=== PATIENT | female | born 1970 | race Caucasian/White ===

== ENCOUNTER 2018-04-11 08:13 | Emergency (ER) | payer SELFPAY ==
--- NOTE | 2018-04-11 08:42 | ER ---
Nurse's Notes [facility] Name: Itzel Daigle Age: 48 yrs Sex: Female : 1970 Arrival Date: 04/11/2018 Time: 08:17 Bed 16 Private MD: None, None Diagnosis: Encounter for screening, unspecified Presentation: 04/11 08:26 Presenting complaint: Patient states: water on my L knee started Tuesday. my work made ch me come get checked out. every 4-5 months this happens. Transition of care: patient was not received from another setting of care. Onset of symptoms was April 07, 2018. Risk Assessment: Do you want to hurt yourself or someone else? Patient reports no desire to harm self or others. Initial Sepsis Screen: Does the patient meet any 2 criteria? No. Patient's initial sepsis screen is negative. Does the patient have a suspected source of infection? No. Patient's initial sepsis screen is negative. Care prior to arrival: None. 08:26 Method Of Arrival: Ambulatory 08:26 Acuity: ALONSO 4 ch Triage Assessment: 08:28 General: Appears in no apparent distress. comfortable, Behavior is calm, cooperative, ch appropriate for age. Pain: Complains of pain in right knee Pain currently is 1 out of 10 on a pain scale. 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 - Social history:: Smoking status: Patient/guardian denies using tobacco, Patient uses alcohol, admits to "couple of beers" a day. Patient/guardian denies using street drugs. - Ebola Screening: : Patient negative for fever greater than or equal to 101.5 degrees Fahrenheit, and additional compatible Ebola Virus Disease symptoms Patient denies exposure to infectious person Patient denies travel to an Ebola-affected area in the 21 days before illness onset No symptoms or risks identified at this time. Screenin:30 Abuse screen: Denies threats or abuse. Nutritional screening: No deficits noted. rb1 Tuberculosis screening: No symptoms or risk factors identified. Fall Risk None identified. Assessment: 08:30 General: Appears in no apparent distress. comfortable, Behavior is calm, cooperative, rb1 Denies fever. Pain: Complains of pain in right knee Pain does not radiate. Pain currently is 1 out of 10 on a pain scale. Neuro: Level of Consciousness is awake, alert, obeys commands, Oriented to person, place, time, situation. Cardiovascular: Capillary refill < 3 seconds is brisk in bilateral fingers. Respiratory: Airway is patent Respiratory effort is even, unlabored, Respiratory pattern is regular, symmetrical. GI: No signs and/or symptoms were reported involving the gastrointestinal system. : No signs and/or symptoms were reported regarding the genitourinary system. Derm: Skin is pink, warm \\T\\ dry. Musculoskeletal: Range of motion: intact in all extremities, Swelling present in right knee. 08:30 Reassessment: Pt. stated, "I can go back to work but they made me come in for a work rb1 release saying that I was ok to work.". Vital Signs: 08:28 BP 124 / 79; Pulse 99; Resp 18; Temp 98.3; Pulse Ox 99% on R/A; Weight 95.25 kg; Height ch 5 ft. 5 in. (165.10 cm); Pain 07/06; 08:28 Body Mass Index 34.95 (95.25 kg, 165.10 cm) ED Course: 08:17 Patient arrived in ED. sb2 08:17 None, None is Private Physician. sb2 08:24 Patric Hawk PA is PHCP. cp 08:24 Vince De León MD is Attending Physician. cp 08:27 Triage completed. ch 08:28 Arm band placed on left wrist. Patient placed in an exam room, on a stretcher. ch 08:30 Patient has correct armband on for positive identification. Placed in gown. Bed in low rb1 position. Call light in reach. Side rails up X 1. Pulse ox on. NIBP on. Warm blanket given. 08:35 Ni Schreiber, RN is Primary Nurse. rb1 08:48 No provider procedures requiring assistance completed. Patient did not have IV access rb1 during this emergency room visit. Administered Medications: No medications were administered Outcome: 08:42 Discharge ordered by . cp 08:46 Patient left the ED. rb1 08:46 Discharged to home ambulatory. rb1 08:46 Condition: stable 08:46 Discharge instructions given to patient, Instructed on discharge instructions, follow up and referral plans. Demonstrated understanding of instructions, follow-up care, Prescriptions given X none Signatures: Abbie Garcia, RN RN Patric Hawk PA PA cp Barber, Rebecca, RN RN rb1 Raven Membreno sb2
--- NOTE | 2018-04-11 08:43 | EDPHYS ---
Physician Documentation [facility] Name: Itzel Daigle Age: 48 yrs Sex: Female : 1970 Arrival Date: 04/11/2018 Time: 08:17 Bed 16 Private MD: None, None ED Physician Vince De León HPI: 04/11 08:34 This 48 yrs old Female presents to ER via Ambulatory with complaints of note cp to return to work. 08:35 Missed work yesterday due to pain in right knee. Denies injury. Reports feels okay to cp return to work today. 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 - Social history:: Smoking status: Patient/guardian denies using tobacco, Patient uses alcohol, admits to "couple of beers" a day. Patient/guardian denies using street drugs. - Ebola Screening: : Patient negative for fever greater than or equal to 101.5 degrees Fahrenheit, and additional compatible Ebola Virus Disease symptoms Patient denies exposure to infectious person Patient denies travel to an Ebola-affected area in the 21 days before illness onset No symptoms or risks identified at this time. ROS: 08:36 Constitutional: Negative for body aches, chills, fever, poor PO intake. cp 08:36 Cardiovascular: Negative for chest pain, edema. 08:36 Respiratory: Negative for cough, shortness of breath, wheezing. 08:36 Abdomen/GI: Negative for abdominal pain, nausea, vomiting, and diarrhea. 08:36 MS/extremity: Negative for decreased range of motion, paresthesias, tenderness, warmth. 08:36 All other systems are negative. Exam: 08:38 Head/Face: Normocephalic, atraumatic. cp 08:38 Constitutional: The patient appears in no acute distress, alert, awake, non-toxic, well developed, well nourished. 08:38 Eyes: Periorbital structures: appear normal, Conjunctiva: normal, no exudate, no injection, Lids and lashes: appear normal, bilaterally. 08:38 ENT: External ear(s): are unremarkable, Nose: is normal, Mouth: is normal. 08:38 Chest/axilla: Inspection: normal. 08:38 Cardiovascular: Rate: normal. 08:38 Respiratory: the patient does not display signs of respiratory distress, Respirations: normal, no use of accessory muscles, no splinting, no tachypnea, labored breathing, is not present. 08:38 Abdomen/GI: Exam negative for discomfort, distension, guarding, Inspection: abdomen appears normal. 08:38 Back: pain, is absent, ROM is normal. 08:38 Musculoskeletal/extremity: Joints: no swelling, no restriction AROM, no tenderness noted on exam. 08:38 Skin: cellulitis, is not appreciated, no rash present. Vital Signs: 08:28 BP 124 / 79; Pulse 99; Resp 18; Temp 98.3; Pulse Ox 99% on R/A; Weight 95.25 kg; Height ch 5 ft. 5 in. (165.10 cm); Pain 1/10; 08:28 Body Mass Index 34.95 (95.25 kg, 165.10 cm) ch MDM: 08:30 Patient medically screened. cp 08:35 Differential Diagnosis strain, richardson's cyst, meniscus tear, ligament injury. cp 08:40 Data reviewed: vital signs, nurses notes, and as a result, I will discharge patient. cp 08:42 Counseling: I had a detailed discussion with the patient and/or guardian regarding: the cp historical points, exam findings, and any diagnostic results supporting the discharge/admit diagnosis, to return to the emergency department if symptoms worsen or persist or if there are any questions or concerns that arise at home. Administered Medications: No medications were administered Disposition: 09:00 Chart complete. cp 10:53 Co-signature as Attending Physician, Vince De León MD. rn Disposition: 04/11/18 08:42 Discharged to Home. Impression: Encounter for screening, unspecified. - Condition is Stable. - Discharge Instructions: Form - Return To Work. - Medication Reconciliation Form, Thank You Letter, Antibiotic Education, Prescription Opioid Use, Work release form form. - Follow up: Private Physician; When: As needed; Reason: Worsening of condition. - Problem is new. - Symptoms are resolved. Signatures: Abbie Garcia RN RN Vince De León MD MD rn Page, Corey, PA PA cp Ni Schreiber, RN RN rb1 Corrections: (The following items were deleted from the chart) 08:46 08:42 04/11/2018 08:42 Discharged to Home. Impression: Encounter for screening, rb1 unspecified. Condition is Stable. Forms are Work release form, Medication Reconciliation Form, Thank You Letter, Antibiotic Education, Prescription Opioid Use. Follow up: Private Physician; When: As needed; Reason: Worsening of condition. Problem is new. Symptoms are resolved. cp
== END 2018-04-11 08:46 | disposition home or self-care (01) ==
LOC: ER 08:13
DX: Z13.9 Encounter for screening, unspecified (principal); I10 Essential (primary) hypertension
CPT/HCPCS: 99283

== ENCOUNTER 2018-10-23 07:14 | Emergency (ER) | payer SELFPAY ==
[2018-10-23] MEDS ORDERED: NA CHLORIDE 0.9% 500 ML ONE (07:58)
[2018-10-23 08:00] LABS: Absolute Lymphocytes (CBC) 1.4 K/uL (0.7-4.9); Absolute Monocytes 0.5 K/uL (0.1-1.3); Absolute Neutrophil 6.8 K/uL (1.8-8.0); Basophils % 0.5 % (0-1.3); Hematocrit 41.3 % (36.0-45.0); MPV 7.7 fL (7.6-11.3); Monocytes % 5.4 % (3.3-12.3); RBC Red Blood Cell Count 4.65 M/uL (3.86-4.86)
[2018-10-23 08:19] LABS: BUN Blood Urea Nitrogen 9 mg/dL (7-18); Bicarbonate 25 mmol/L (21-32); Glucose Level 117 mg/dL (74-106); Sodium Level 137 mmol/L (136-145); Troponin (Emerg Dept Use Only) < 0.02 ng/mL (0.0-0.045)
--- NOTE | 2018-10-23 08:28 | RAD REPORT ---
EXAM DESCRIPTION: RAD - Chest Single View - 10/23/2018 8:14 am CLINICAL HISTORY: PALPITATIONS Chest pain. COMPARISON: Chest Pa And Lat (2 Views) dated 05/09/2017; CHEST SINGLE VIEW dated 02/09/2013; CHEST SI NGLE VIEW dated 01/17/2013; CHEST PA AND LAT 2 VIEW dated 12/29/2001 FINDINGS: Portable technique limits examination quality. The lungs are grossly clear. The heart is normal in size. No displaced fractures. IMPRESSION: No acute intrathoracic process suspected.
--- NOTE | 2018-10-23 08:53 | RAD REPORT ---
EXAM DESCRIPTION: CT - Head Brain Wo Cont - 10/23/2018 8:46 am CLINICAL HISTORY: HEADACHE Headache, hypertension COMPARISON: HEAD BRAIN W O CONTRAST dated 01/17/2013; HEAD BRAIN W O CONTRAST dated 12/29/2001; Soft Ti ssue Neck W/Contr dated 10/23/2018 TECHNIQUE: All CT scans are performed using dose optimization technique as appropriate and may inclu de automated exposure control or mA/KV adjustment according to patient size. FINDINGS: No intracranial hemorrhage, hydrocephalus or extra-axial fluid collection.No areas of brai n edema or evidence of midline shift. The paranasal sinuses and mastoids are clear. The calvarium is intact. IMPRESSION: No acute intracranial abnormality.
--- NOTE | 2018-10-23 08:58 | RAD REPORT ---
EXAM DESCRIPTION: CT - Soft Tissue Neck W/Contr CLINICAL HISTORY: difficulty swallowing solids Neck pain COMPARISON: Head Brain Wo Cont dated 10/23/[address] scans are performed using dose optimization technique as appropriate and may includ e automated exposure control or mA/KV adjustment according to patient size. FINDINGS: Nasopharynx is within normal limits. Fossa of Rosenmuller well aerated bilaterally. Skullb ase is intact. No intrinsic laryngeal or pharyngeal mass. Salivary glands are symmetric. The thyroid gland is normal in size. Small left-sided tonsillith is present at the level the palatine tonsils. No bulky neck adenopathy is seen. IMPRESSION: An acute neck abnormality is not detected. Direct visualization would be advised if clin ical symptoms persist.
--- NOTE | 2018-10-23 09:04 | EDPHYS ---
Physician Documentation [facility] Name: Itzel To Age: 48 yrs Sex: Female : 1970 Arrival Date: 10/23/2018 Time: 07:17 Bed 13 Private MD: ED Physician Vince De León HPI: 10/23 08:35 This 48 yrs old Female presents to ER via Ambulatory with complaints of rn Headache, High Blood Pressure. 08:35 The patient complains of pain to the occipital area. The patient describes the headache rn as aching. Onset: The symptoms/episode began/occurred last night. Associated signs and symptoms: Pertinent negatives: altered mental status, fever, neck stiffness, rash, vision changes, vision loss, vomiting, vertigo. Severity of symptoms: At its worst the pain was moderate, in the emergency department the pain has improved. Headache History: The patient has had previous headaches and this one is similar to previous episodes. The symptoms are alleviated by nothing. The patient has experienced similar episodes in the past. Reports out of her lisinopril for weeks, last night felt headache, high blood pressure, nausea, became anxious, reports palpitations but no chest pain. Feels better now and BP improved. NO head injury. NO focal neurological complaint. Also reports months of progressive dysphagia to solids, can take liquids. . Historical: - Allergies: 07:31 No Known Allergies; ss - Home Meds: 07:31 Lisinopril 10 mg PO once DAILY (has been out for three months) [Active]; ss - PMHx: 07:30 "fluid on knee"; Hypertension; ph 07:31 Hypertension; High Cholesterol; ss - PSHx: 07:30 Tubal ligation; ph 07:31 Tubal ligation; ss - Immunization history:: Adult Immunizations unknown, Adult Immunizations up to date. - Social history:: Patient uses alcohol, only on a social basis. Patient/guardian denies using street drugs, Smoking status: Patient uses tobacco products, smokes one-half pack cigarettes per day. - Ebola Screening: : No symptoms or risks identified at this time Patient denies exposure to infectious person Patient denies travel to an Ebola-affected area in the 21 days before illness onset. - Family history:: not pertinent. - Hospitalizations: : No recent hospitalization is reported. ROS: 08:35 Constitutional: Negative for fever, chills, and weight loss, Eyes: Negative for injury, rn pain, redness, and discharge, Neck: Negative for injury, pain, and swelling, Cardiovascular: Negative for chest pain, and edema, Respiratory: Negative for cough, wheezing, and pleuritic chest pain, Abdomen/GI: Negative for abdominal pain, vomiting, diarrhea, and constipation, MS/Extremity: Negative for injury and deformity, Skin: Negative for injury, rash, and discoloration, Neuro: Negative for numbness, tingling, and seizure. Exam: 08:35 Constitutional: This is a well developed, well nourished patient who is awake, alert, rn appears anxious and tearful Head/Face: Normocephalic, atraumatic. Eyes: Pupils equal round and reactive to light, extra-ocular motions intact. Lids and lashes normal. Conjunctiva and sclera are non-icteric and not injected. Cornea within normal limits. Periorbital areas with no swelling, redness, or edema. ENT: MMM Neck: Trachea midline, no thyromegaly or masses palpated, and no cervical lymphadenopathy. Supple, full range of motion without nuchal rigidity, or vertebral point tenderness. No Meningismus. Cardiovascular: Regular rate and rhythm . No pulse deficits. Respiratory: Lungs have equal breath sounds bilaterally, clear to auscultation. No increased work of breathing, no retractions or nasal flaring. Skin: Warm, dry with normal turgor. Normal color with no rashes, no lesions, and no evidence of cellulitis. MS/ Extremity: Pulses equal, no cyanosis. Neurovascular intact. Full, normal range of motion. Equal circumference. Neuro: Awake and alert, GCS 15, oriented to person, place, time, and situation. Cranial nerves II-XII grossly intact. Motor strength 5/5 in all extremities. Sensory grossly intact. Cerebellar exam normal. Normal gait. Vital Signs: 07:28 BP 145 / 87; Pulse 106; Resp 18; Pulse Ox 99% on R/A; ph 07:31 Weight 85.73 kg; Height 5 ft. 5 in. (165.10 cm); Pain 7/10; ss 08:36 BP 123 / 77; Pulse 102; Resp 18; Pulse Ox 99% ; ph 09:40 BP 132 / 80; Pulse 94; Resp 18; Temp 97.9; Pulse Ox 100% on R/A; ph 07:31 Body Mass Index 31.45 (85.73 kg, 165.10 cm) ss Cranston Coma Score: 09:01 Eye Response: spontaneous(4). Verbal Response: oriented(5). Motor Response: obeys rn commands(6). Total: 15. MDM: 07:26 Patient medically screened. rn 09:01 Differential diagnosis: hypertensive headache, tension headache, vasomotor headache. rn Data reviewed: vital signs, nurses notes, lab test result(s), radiologic studies, CT scan, and as a result, I will discharge patient. Counseling: I had a detailed discussion with the patient and/or guardian regarding: the historical points, exam findings, and any diagnostic results supporting the discharge/admit diagnosis, lab results, radiology results, the need for outpatient follow up, to return to the emergency department if symptoms worsen or persist or if there are any questions or concerns that arise at home. Response to treatment: the patient's symptoms have mildly improved after treatment. Special discussion: I discussed with the patient/guardian in detail that at this point there is no indication for admission to the hospital. It is understood, however, that if the symptoms persist or worsen the patient needs to return immediately for re-evaluation. ED course: Will refer to GI for swallowing issues, recommend daily antacid for now until scoped. . 10/23 07:36 Order name: CBC with Diff; Complete Time: 08:57 rn 10/23 07:36 Order name: Basic Metabolic Panel; Complete Time: 08:57 rn 10/23 07:36 Order name: Troponin (emerg Dept Use Only); Complete Time: 08:57 rn 10/23 07:36 Order name: CT Head Brain wo Cont; Complete Time: 08:57 10/23 07:36 Order name: CT Soft Tissue Neck W/contr; Complete Time: 09:00 rn 10/23 07:36 Order name: XRAY Chest (1 view); Complete Time: 08:57 rn 10/23 07:36 Order name: IV Start; Complete Time: 07:53 rn 10/23 07:36 Order name: EKG; Complete Time: 07:37 rn 10/23 07:36 Order name: EKG - Nurse/Tech; Complete Time: 07:57 rn Administered Medications: 07:57 Drug: NS 0.9% 500 ml Route: IV; Rate: bolus; Site: right antecubital; ph 08:30 Follow up: Response: No adverse reaction; IV Status: Completed infusion ph Disposition: 10/23/18 09:03 Discharged to Home. Impression: Headache, Hypertension, Dysphagia. - Condition is Stable. - Discharge Instructions: Dysphagia, Hypertension. - Medication Reconciliation Form, Thank You Letter, Antibiotic Education, Prescription Opioid Use, Work release form form. - Follow up: Private Physician; When: As needed; Reason: Recheck today's complaints, Re-evaluation by your physician. - Problem is new. - Symptoms have improved. Signatures: Dispatcher [employer] EDMS Vince De León MD MD rn Smirch, Shelby, RN RN Radha Patel RN RN ph Corrections: (The following items were deleted from the chart) 09:41 09:03 10/23/2018 09:03 Discharged to Home. Impression: Headache; Hypertension; ph Dysphagia. Condition is Stable. Forms are Medication Reconciliation Form, Thank You Letter, Antibiotic Education, Prescription Opioid Use. Follow up: Private Physician; When: As needed; Reason: Recheck today's complaints, Re-evaluation by your physician. Problem is new. Symptoms have improved. rn
--- NOTE | 2018-10-23 09:04 | ER ---
Nurse's Notes [facility] Name: Itzel To Age: 48 yrs Sex: Female : 1970 Arrival Date: 10/23/2018 Time: 07:17 Bed 13 Private MD: Diagnosis: Headache;Hypertension;Dysphagia Presentation: 10/23 07:28 Presenting complaint: Patient states: "I feel like my blood pressure is high. I ss couldn't sleep last night, my head is throbbing and I feel shaky." Pt reports she is supposed to take Lisinopril 10 mg DAILY and medication for high cholesterol, but has been out for three months. Transition of care: patient was not received from another setting of care. Onset of symptoms was October 22, 2018. Risk Assessment: Do you want to hurt yourself or someone else? Patient reports no desire to harm self or others. Initial Sepsis Screen: Does the patient meet any 2 criteria? No. Patient's initial sepsis screen is negative. Does the patient have a suspected source of infection? No. Patient's initial sepsis screen is negative. Care prior to arrival: None. 07:28 Method Of Arrival: Ambulatory ss 07:28 Acuity: ALONSO 3 ss Historical: - Allergies: 07:31 No Known Allergies; ss - Home Meds: 07:31 Lisinopril 10 mg PO once DAILY (has been out for three months) [Active]; ss - PMHx: 07:30 "fluid on knee"; Hypertension; ph 07:31 Hypertension; High Cholesterol; ss - PSHx: 07:30 Tubal ligation; ph 07:31 Tubal ligation; ss - Immunization history:: Adult Immunizations unknown, Adult Immunizations up to date. - Social history:: Patient uses alcohol, only on a social basis. Patient/guardian denies using street drugs, Smoking status: Patient uses tobacco products, smokes one-half pack cigarettes per day. - Ebola Screening: : No symptoms or risks identified at this time Patient denies exposure to infectious person Patient denies travel to an Ebola-affected area in the 21 days before illness onset. - Family history:: not pertinent. - Hospitalizations: : No recent hospitalization is reported. Screenin:29 Abuse screen: Denies threats or abuse. Denies injuries from another. Nutritional ph screening: No deficits noted. Tuberculosis screening: No symptoms or risk factors identified. Fall Risk None identified. Assessment: 08:00 General: Appears in no apparent distress. comfortable, well groomed, Behavior is calm, ph cooperative, appropriate for age, Denies fever, feeling ill. Pain: Complains of pain in occipital area and base of the skull. 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 Full function Gait is steady, Speech is normal, Facial symmetry appears normal, Facial symmetry: tongue is midline, Pupils are PERRLA, Reports headache occipital area. Cardiovascular: Reports lightheadedness, palpitations, shortness of breath, Denies chest pain, diaphoresis, nausea, vomiting, Capillary refill < 3 seconds in bilateral fingers Patient's skin is warm and dry. Respiratory: Airway is patent Respiratory effort is even, unlabored, Respiratory pattern is regular, symmetrical. GI: No signs and/or symptoms were reported involving the gastrointestinal system. Patient currently denies abdominal pain, nausea, vomiting. EENT: Reports difficulty swallowing. Derm: Skin is intact, is healthy with good turgor, Skin is pink, warm \\T\\ dry. Musculoskeletal: Circulation, motion, and sensation intact. Range of motion: intact in all extremities. 08:35 Reassessment: Patient appears in no apparent distress at this time. Patient and/or ph family updated on plan of care and expected duration. Pain level reassessed. Patient is alert, oriented x 3, equal unlabored respirations, skin warm/dry/pink. Pt taken to CT via wheelchair. 09:41 Reassessment: Patient appears in no apparent distress at this time. Patient and/or ph family updated on plan of care and expected duration. Pain level reassessed. Patient is alert, oriented x 3, equal unlabored respirations, skin warm/dry/pink. Pt d/c home. Vital Signs: 07:28 BP 145 / 87; Pulse 106; Resp 18; Pulse Ox 99% on R/A; ph 07:31 Weight 85.73 kg; Height 5 ft. 5 in. (165.10 cm); Pain 7/10; ss 08:36 BP 123 / 77; Pulse 102; Resp 18; Pulse Ox 99% ; ph 09:40 BP 132 / 80; Pulse 94; Resp 18; Temp 97.9; Pulse Ox 100% on R/A; ph 07:31 Body Mass Index 31.45 (85.73 kg, 165.10 cm) Jackson Coma Score: 09:01 Eye Response: spontaneous(4). Verbal Response: oriented(5). Motor Response: obeys rn commands(6). Total: 15. ED Course: 07:17 Patient arrived in ED. as 07:24 Radha Singleton RN is Primary Nurse. ph 07:26 Vince De León MD is Attending Physician. rn 07:29 Arm band placed on. ph 07:29 Patient has correct armband on for positive identification. Bed in low position. Call ph light in reach. Side rails up X 1. Pulse ox on. NIBP on. 07:30 Triage completed. 07:42 Radiology exam delayed due to lab results not completed at this time. (BUN/Creatinine). mw3 07:53 Initial lab(s) drawn, by ia, sent to lab. Inserted saline lock: 20 gauge in right em1 antecubital area, using aseptic technique. Blood collected. 08:15 XRAY Chest (1 view) In Process Unspecified. EDMS 08:46 CT Head Brain wo Cont In Process Unspecified. EDMS 08:46 CT Soft Tissue Neck W/contr In Process Unspecified. EDMS 09:40 No provider procedures requiring assistance completed. IV discontinued, intact, ph bleeding controlled, No redness/swelling at site. Pressure dressing applied. Administered Medications: 07:57 Drug: NS 0.9% 500 ml Route: IV; Rate: bolus; Site: right antecubital; ph 08:30 Follow up: Response: No adverse reaction; IV Status: Completed infusion ph Outcome: 09:03 Discharge ordered by . rn 09:40 Discharged to home ambulatory. ph 09:40 Condition: good 09:40 Discharge instructions given to patient, Instructed on discharge instructions, follow up and referral plans. Demonstrated understanding of instructions, follow-up care. 09:41 Patient left the ED. ph Signatures: Dispatcher [employer] Elva Taylor Roman, MD MD rn Martinez, Eric em1 Kristin Estrella RN RN Radha Singleton RN RN Latanya De Guzman [email or web address]
== END 2018-10-23 09:41 | disposition home or self-care (01) ==
LOC: ER 07:14
DX: I10 Essential (primary) hypertension (principal); R13.10 Dysphagia, unspecified; F17.210 Nicotine dependence, cigarettes, uncomplicated; E78.00 Pure hypercholesterolemia, unspecified
CPT/HCPCS: 36415; 70450; 70491; 71045; 80048; 84484; 85025; Q9967

== ENCOUNTER 2019-12-27 10:21 | Emergency (ER) | payer SELFPAY ==
[2019-12-27 12:43] LABS: Urine Blood NEGATIVE (NEG); Urine Glucose NEGATIVE (NEG); Urine Protein NEGATIVE (NEG); Urine Specific Gravity 1.025 (1.005-1.030); Urine pH 7.5 (5.0-7.0)
[2019-12-27 12:49] LABS: Urine Bacteria <20 /HPF (<20); Urine Culture Reflex Order NOT NEEDED; Urine RBC <5 /HPF (NONE SEEN)
--- NOTE | 2019-12-27 13:56 | EDPHYS ---
Physician Documentation [facility] Name: Itzel To Age: 49 yrs Sex: Female : 1970 Arrival Date: 12/27/2019 Time: 10:22 Bed 19 Private MD: ED Physician Nayan Mccoy HPI: 12/26 12:51 This 49 yrs old Female presents to ER via Ambulatory with complaints of jmm Possible STI. 12:51 The patient presents with a possible exposure to a sexually transmitted disease. Onset: jmm The symptoms/episode began/occurred gradually. Modifying factors: The symptoms are alleviated by nothing, the symptoms are aggravated by nothing. This is a 49 year old female with a history of htn, hlp that presents to the ED with complaints of vaginal swelling beginning after a recent unprotected intercourse. Denies abdnormal discharge. Partner just notified her that he had a STD. . 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 - Social history:: Smoking status: Patient denies any tobacco usage or history of. Patient uses alcohol, on a daily basis. claims drinking about a 6 pack/day. ROS: 12:51 Constitutional: Negative for fever, chills, and weight loss, Cardiovascular: Negative jmm for chest pain, palpitations, and edema, Respiratory: Negative for shortness of breath, cough, wheezing, and pleuritic chest pain. 12:51 : Positive for urinary symptoms. 12:51 All other systems are negative. Exam: 12:51 Constitutional: This is a well developed, well nourished patient who is awake, alert, jmm and in no acute distress. Head/Face: atraumatic. Eyes: EOMI, no conjunctival erythema appreciated ENT: Moist Mucus Membranes Neck: Trachea midline, Supple Chest/axilla: Normal chest wall appearance and motion. Cardiovascular: Regular rate and rhythm. No edema appreciated Respiratory: Normal respirations, no respiratory distress appreciated Abdomen/GI: Non distended, soft Back: Normal ROM Skin: General appearance color normal MS/ Extremity: Moves all extremities, no obvious deformities appreciated, no edema noted to the lower extremities Neuro: Awake and alert, normal gait Psych: Behavior is normal, Mood is normal, Patient is cooperative and pleasant 13:53 : Pelvic Exam: External exam: erythema is noted, Speculum exam: normal findings, os [facility] that is closed. Vital Signs: 10:43 BP 152 / 99; Pulse 70; Resp 17; Temp 98.2; Pulse Ox 100% ; Pain 5/10; jl7 12:20 BP 138 / 92; Pulse 82; Resp 15 S; Pulse Ox 99% on R/A; ca1 13:41 BP 128 / 85; Pulse 86; Resp 15 S; Pulse Ox 100% on R/A; ca1 MDM: 12:43 Patient medically screened. [facility] 13:45 Data reviewed: vital signs, nurses notes. Counseling: I had a detailed discussion with [facility] the patient and/or guardian regarding: the historical points, exam findings, and any diagnostic results supporting the discharge/admit diagnosis, the need for outpatient follow up, to return to the emergency department if symptoms worsen or persist or if there are any questions or concerns that arise at home. 12/26 11:34 Order name: Urine Microscopic Only; Complete Time: 12:54 [facility] 12/26 11:46 Order name: Urine Dipstick--Ancillary (enter results); Complete Time: 12:47 [place] 12/26 11:46 Order name: Urine --Ancillary (enter results); Complete Time: 12:47 [place] 12/26 12:49 Order name: GC (GONORR/CHLAMYDIA) Probe [facility] 12/26 12:49 Order name: Wet Prep [facility] 12/26 12:54 Order name: Pelvic Exam Setup; Complete Time: 13:03 [facility] Administered Medications: No medications were administered Disposition: 15:56 Co-signature as Attending Physician, Nayan Mccoy MD I agree with the assessment and kdr plan of care. Disposition: 12/27/19 13:56 Discharged to Home. Impression: Labial Cellulitis, Possible STI. - Condition is Stable. - Discharge Instructions: Cellulitis, Adult. - Prescriptions for Bactrim DS 800- 160 mg Oral Tablet - take 1 tablet by ORAL route every 12 hours for 10 days; 20 tablet. Doxycycline Monohydrate 100 mg Oral Tablet - take 1 tablet by ORAL route every 12 hours for 10 days; 20 tablet. - Medication Reconciliation Form, Thank You Letter, Antibiotic Education, Prescription Opioid Use form. - Follow up: Private Physician; When: 2 - 3 days; Reason: Recheck today's complaints, Continuance of care, Re-evaluation by your physician. Signatures: Dispatcher [employer] EDMS Nayan Mccoy MD MD kdr Mickail, Joel, PA PA jmm Leal, Jahala, RN RN jl7 Silvana Saldana RN RN ca1 Corrections: (The following items were deleted from the chart) 14:15 13:56 12/27/2019 13:56 Discharged to Home. Impression: Labial Cellulitis; Possible STI. ca1 Condition is Stable. Forms are Medication Reconciliation Form, Thank You Letter, Antibiotic Education, Prescription Opioid Use. Follow up: Private Physician; When: 2 - 3 days; Reason: Recheck today's complaints, Continuance of care, Re-evaluation by your physician. ignacio
--- NOTE | 2019-12-27 13:56 | ER ---
Nurse's Notes [facility] Name: Itzel To Age: 49 yrs Sex: Female : 1970 Arrival Date: 12/27/2019 Time: 10:22 Bed 19 Private MD: Diagnosis: Labial Cellulitis;Possible STI Presentation: 12/26 10:43 Chief complaint: Patient states: Had sex with estranged about a week ago, jl7 reports vaginal swelling and lumps to vaginal area x 5 days. "He just reported having an STD. Won't tell me what it is.". Coronavirus screen: Proceed with normal triage. Patient denies a cough. Patient denies shortness of breath or difficulty breathing. Patient denies measured and/or subjective temperature greater than 100.4F prior to today's visit. Patient denies travel on a cruise ship or to a country the [facility] currently lists as an affected area. Patient denies contact with known and/or suspected case of COVID-19. Ebola Screen: No symptoms or risks identified at this time. Initial Sepsis Screen: Does the patient meet any 2 criteria? No. Patient's initial sepsis screen is negative. Does the patient have a suspected source of infection? No. Patient's initial sepsis screen is negative. Risk Assessment: Do you want to hurt yourself or someone else? Patient reports no desire to harm self or others. Onset of symptoms was December 22, 2019. Care prior to arrival: None. 10:43 Method Of Arrival: Ambulatory jl7 10:43 Acuity: ALONSO 4 jl7 Triage Assessment: 10:47 General: Appears in no apparent distress. uncomfortable, Behavior is calm, cooperative, jl7 appropriate for age. Pain: Pain currently is 5 out of 10 on a pain scale. 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 - Social history:: Smoking status: Patient denies any tobacco usage or history of. Patient uses alcohol, on a daily basis. claims drinking about a 6 pack/day. Screenin:17 Abuse screen: Denies threats or abuse. Denies injuries from another. Nutritional ca1 screening: No deficits noted. Tuberculosis screening: No symptoms or risk factors identified. Fall Risk None identified. Assessment: 12:17 General: Appears in no apparent distress. comfortable, Behavior is calm, cooperative, ca1 appropriate for age. Pain: Complains of pain in groin Pain currently is 6 out of 10 on a pain scale. Pain began 5 days ago. Neuro: Level of Consciousness is awake, alert, obeys commands, Oriented to person, place, time, situation, Appropriate for age. Cardiovascular: Heart tones S1 S2 present Capillary refill < 3 seconds Patient's skin is warm and dry. Respiratory: Airway is patent Respiratory effort is even, unlabored, Respiratory pattern is regular, symmetrical. GI: Abdomen is flat, non-distended, Bowel sounds present X 4 quads. Abd is soft and non tender X 4 quads. : Reports pain vaginal area. Reports 2 lumps on each labia since 4-5 days ago. EENT: No signs and/or symptoms were reported regarding the EENT system. Derm: Skin is intact, is healthy with good turgor, Skin is pink, warm \\T\\ dry. Musculoskeletal: Circulation, motion, and sensation intact. Capillary refill < 3 seconds. 13:41 Reassessment: Patient appears in no apparent distress at this time. Patient and/or ca1 family updated on plan of care and expected duration. Pain level reassessed. Patient is alert, oriented x 3, equal unlabored respirations, skin warm/dry/pink. Vital Signs: 10:43 BP 152 / 99; Pulse 70; Resp 17; Temp 98.2; Pulse Ox 100% ; Pain 5/10; jl7 12:20 BP 138 / 92; Pulse 82; Resp 15 S; Pulse Ox 99% on R/A; ca1 13:41 BP 128 / 85; Pulse 86; Resp 15 S; Pulse Ox 100% on R/A; ca1 ED Course: 10:22 Patient arrived in ED. ag5 10:46 Triage completed. jl7 10:47 Arm band placed on right wrist. jl7 11:34 Maral Guillen RN is Primary Nurse. jl7 11:41 Urine collected: clean catch specimen, clear. jl7 12:05 Gaston Huertas PA is PHCP. [facility] 12:05 Nayan Mccoy MD is Attending Physician. [facility] 12:07 Primary Nurse role handed off by Maral Guillen RN ca1 12:07 Silvana Saldana, RN is Primary Nurse. ca1 12:17 Patient has correct armband on for positive identification. Placed in gown. Bed in low ca1 position. Call light in reach. Side rails up X 1. Pulse ox on. NIBP on. Warm blanket given. 13:42 Assist provider with pelvic exam: Set up pelvic tray. Performed by Gaston VEGA ca1 Specimens sent to lab. Patient tolerated well. 14:15 Patient did not have IV access during this emergency room visit. ca1 Administered Medications: No medications were administered Outcome: 13:56 Discharge ordered by . [facility] 14:15 Discharged to home ambulatory. ca1 14:15 Condition: stable 14:15 Discharge instructions given to patient, Instructed on discharge instructions, follow up and referral plans. medication usage, safe sex practices, Demonstrated understanding of instructions, follow-up care, medications, Prescriptions given X 2. 14:15 Patient left the ED. [facility] Signatures: Gaston Huertas PA PA [facility] Maral Guillen, RN RN jl7 Silvana Saldana, RN RN ca1 Ana Laura Farrell ag5
[2019-12-27 14:24] VITALS: TEMP 98.2
[2019-12-27 14:27] VITALS: BP 128/85; O2SAT 100
[2019-12-31 19:40] LABS: C.trachomatis RNA,TMA Not Detected (Not Detected)
== END 2019-12-27 14:15 | disposition home or self-care (01) ==
LOC: ER 10:21
DX: N76.2 Acute vulvitis (principal); F10.10 Alcohol abuse, uncomplicated; Z20.2 Contact with and (suspected) exposure to infections with a predominantly sexual mode of transmission
CPT/HCPCS: 81003; 81015; 81025; 87210; 87490; 87590; 99284

== ENCOUNTER 2024-06-28 12:22 | Emergency (ER) | payer OTHER, SELFPAY ==
--- OUTSIDE RECORDS SUMMARY | 2024-06-28 12:26 | XMS REPORT | Continuity of Care Document ---
Author Name Unknown Address [address] [place] [address] [facility] thconnect Address [address] [place] [address] Care Team Providers Care Telemarketing Sales Representative Name Role Phone PCP, PATIENT DOES NOT HAVE A Primary Care Physic nilson Unavailable JOSE RAMON BYRNE Attending Clinician UnavailCAIO Jhaveri Attending Clinician Unavailable URBAN GRANADOS Attending Clinician Unavailable KATIANA PIEDRA Attending Clinician Unavailab BERYL Gonzalez Attending Clinician Unavailable LAB90 Attending Clinician Unavailable BROCK TRIPP Attending Clinician Unavailable MD NATHALIA Attending Clinician Unavailab MARIAM Wright Attending Clinician UnavailWHITNEY Moreno Attending Clinician Unavailable ANGE DOUGHERTY Attending Clinician Unava ilGISELA Selby Attending Clinician Unavailable BISI ALLEN Attending Clinician Unavailable BROOKE FRANK Attending Clinician Unava ilable ROCKY PEARL Attending Clinician Unavailable ANNAMARIE DOSS Attending Clinician Unava ilable ANGÉLICA HERRERA Attending Clinician Unavaila ble Angélica Gordillo Attending Clinician [phone] Molina BRAUN, Bree Bnenett Attending Clinician + [phone] RUBY MEDINA Attending Clinician Unavailphilip Cobian DO Chuckie Attending Clinician [phone] Ruby Rice Attending Clinician [phone] Doctor Unassigned, [place] Attending Clinician U JOSE ALFREDO Dalton Attending Clinician Unavailable ANGÉLICA HERRERA Admitting Clinician Unavaila JOSE ALFREDO Peace Admitting Clinician Unavailable Payers Payer Name Policy Type Policy Number Effective Date Expirati on Date Source AETNA MP [employer] [employer] 5 H[employer] LEAD [employer]IVER 94 ON 9 [id number] 2023 00:00:00 [employer] 2 [id number] 2023 00:00:00 [employer] 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 [id number] 2023 00:00:00 Problems Condition Name Condition Details Condition Category Status Onset Date Resolution Date Last Treatment Date Treating Clinician Comments Source Mild episode of recurrent major depressive disorder Mild episode of recurrent major depressive disorder Disease Active 2023-06 0- 00:00: 00 Shanta Monteiro - Keilaa sonal Chronic low back pain without sciatica Chronic low back pain without sciatica Disease Active - 00:00: 00 Shanta Monteiro - Externa l Chronic neck pain Chronic neck pain Disease Active - 00:00: 00 Shanta Monteiro - Keilaa sonal Pelvic mass Pelvic mass Disease Active - 00:00: 00 [facility] Lump or mass in breast Lump or mass in breast Disease Active - 00:00: 00 [facility] History of bilateral tubal ligation History of bilateral tubal ligation Disease Active 10-28 00:00: 00 Shanta Monteiro - Keilaa l Screening for STD (sexually transmitte d disease) Screening for STD (sexually transmitte d disease) Disease Active 06-29 00:00: 00 [facility] Solitary cyst of left breast Solitary cyst of left breast Disease Active 06-29 00:00: 00 [facility] Essential hypertensi on, benign Essential hypertensi on, benign Disease Active 06-29 00:00: 00 Shanta Stout l BMI 30.0-30.9, adult BMI 30.0-30.9, adult Disease Active 2015-06 1- 00:00: 00 Shanta Pedrazaa l Inflammato ry disease of breast Inflammato ry disease of breast Disease Active 12-25 00:00: 00 [facility] Allergies, Adverse Reactions, Alerts Allergy Name Allergy Type Status Severity Reaction(s) Onset Date Inactive Date Treating Clinician Comments Source NO KNOWN ALLERGIE S Drug Class Active [facility] Social History Social Habit Start Date Stop Date Quantity Comments Source History SDOH Alcohol Frequency [facility] History SDOH Alcohol Std Drinks [facility] History SDOH Alcohol Binge [facility] Gender identity [facility] Exposure to SARS-CoV-2 (event) Not sure [facility] Sexual orientation Caprice Monteiro - External ASSERTION Not Shanta Monteiro - External Alcoholic beverage intake 2024-06-08 00:00:00 2024-06-08 00:00:00 Current drinker of alcohol (finding) Shanta Monteiro - External Tobacco use and exposure 2024-06-08 00:00:00 2024-06-08 00:00:00 Smokeless tobacco non-user Shanta Hale External Alcohol intake 2023-08-04 00:00:00 2023-08-04 00:00:00 Current drinker of alcohol (finding) Shanta Monteiro - External History of Social function 2023-08-03 00:00:00 2023-08-03 00:00:00 Shanta Monteiro - External Alcohol Comment 2023-08-03 00:00:00 2023-08-03 00:00:00 beer daily, 6+ per day Shanta Monteiro - External Sex 2023-01-24 13:52:36 2023-01-24 13:52:36 Female (finding) Shanta Monteiro - External Sex assigned at 1970 00:00:00 1970 00:00:00 Shanta Seybold - External Smoking Status Start Date Stop Date Source Never smoked tobacco Shanta Monteiro - External Medications Ordered Medication Name Filled Medication Name Start Date Stop Date Current Medication? Ordering Clinician Indication Dosage Frequency Signature (SIG) Comments Components Source Duloxetine HCl [address] Particles 2023-06 13:54: 17 Yes [id number] 30mg QD Take 1 capsule (30 mg total) by mouth daily. Indication s: Major Depressive Disorder Shanta Pedrazaa l Duloxetine HCl [address] Particles 2023-06 12:22: 53 Yes 1741 30mg QD Take 1 capsule (30 mg total) by mouth daily. Indication s: Major Depressive Disorder Shanta Stout l Diclofenac Sodium 75 MG oral Tablet Delayed Response 2023-06 00:00: 00 Yes 75mg Q.5D Take 1 tablet (75 mg total) by mouth 2 times daily as needed As needed for pain. Shanta pruitt Topiramate 25 MG oral Tablet 2023-06 00:00: 00 Yes [id number] 25mg Q.5D Take 1 tablet (25 mg total) by mouth 2 times daily. Shanta pruitt Baclofen 10 MG oral Tablet 2023-06 00:00: 00 Yes [id number] 10mg Take 1 tablet (10 mg total) by mouth every night at bedtime As needed for spasm. Shanta pruitt Fluconazole 150 MG oral Tablet 03-08 00:00: 00 06-08 00:00 :00 No TAKE 1 TABLET BY MOUTH NOW FOR 1 DOSE. IF SYMPTOMS NOT IMPROVED AFTER 72 HOURS, TAKE 2ND DOSE Shanta pruitt Baclofen 10 MG oral Tablet 03-05 00:00: 00 Yes [id number] 10mg Take 1 tablet (10 mg total) by mouth every night at bedtime As needed for spasm. Shanta Pedrazaa sonal Diclofenac Sodium 75 MG oral Tablet Delayed Response 03-05 00:00: 00 04-05 00:00 :00 No [id number] 75mg Q.5D Take 1 tablet (75 mg total) by mouth 2 times daily As needed for pain. Shanta pruitt Fluorouraci l (Efudex) 5 % apply externally Cream 12-21 00:00: 00 03-05 00:00 :00 No 1{appli cation} Q.5D Apply 1 Applicatio n topically 2 times daily For 2 weeks. Shanta pruitt Cefdinir 300 MG oral Capsule 12-05 00:00: 00 03-05 00:00 :00 No [id number] 300mg Q.5D Take 1 capsule (300 mg total) by mouth 2 times daily. Shanta pruitt Naproxen 500 MG oral Tablet 08-04 00:00: 00 03-05 00:00 :00 No [id number] 9108 Take as needed for toe pain. Shanta pruitt naproxen sodium (ANAPROX DS) 550 mg tablet 11-13 00:00: 00 Yes [id number] 550mg Take 1 tablet by mouth 2 (two) times daily with meals. [facility] cephALEXin (KEFLEX) 500 mg capsule 11-13 00:00: 00 11-21 04:59 :00 No [id number] 500mg Take 1 capsule by mouth 3 (three) times daily for 7 days. [facility] sulfamethox azole-trime thoprim 800-160 mg per tablet 11-13 00:00: 00 11-21 04:59 :00 No [id number] 1{tbl} Take 1 tablet by mouth 2 (two) times daily for 7 days. [facility] MULTIVITAMI N ORAL 10-28 15:52: 46 Yes Take by mouth. [facility] IBUPROFEN ORAL 10-28 15:52: 46 Yes Take by mouth. [facility] MULTIVITAMI N ORAL 10-28 10:52: 46 Yes Take by mouth. [facility] lisinopril 10 mg tablet 2018-06 2-15 00:00: 00 10-28 00:00 :00 No [id number] 10mg Take 1 tablet by mouth at bedtime. [facility] azithromyci n (ZITHROMAX Z-DES) 250 mg tablet 03-23 00:00: 00 10-28 00:00 :00 No 250mg Take 1 tablet by mouth SEE-INSTRU CTIONS. Take 500 mg day 1, then 250 mg days 2 to 5. [facility] benzonatate 100 mg capsule 03-23 00:00: 00 10-28 00:00 :00 No 100mg Take 1 capsule by mouth 3 (three) times daily as needed for Cough. [facility] loratadine- pseudoephed rine (CLARITIN-D 24 HOUR) 10-240 mg per 24 hr tablet 03-23 00:00: 00 10-28 00:00 :00 No 1{tbl} Take 1 tablet by mouth daily. [facility] Vital Signs Vital Name Observation Time Observation Value Comments S ource Systolic blood pressure 2024-06-08 19:51:00 120 mm[Hg] Shanta Seybo ld - External Diastolic blood pressure 2024-06-08 19:51:00 60 mm[Hg] Shanta Hinojosaybo ld - External Heart rate 2024-06-08 19:51:00 86 /min Anton Monteiro - External Body temperature 2024-06-08 19:51:00 36.61 Natalee Shanta Seybold - External Respiratory rate 2024-06-08 19:51:00 14 /min Shanta Floydold - External Body height 2024-06-08 19:51:00 162.6 cm Ledy Monteiro - External Body weight 2024-06-08 19:51:00 81.647 kg Ledy ayala Seybold - External BMI 2024-06-08 19:51:00 30.90 kg/m2 Ledy Floydold - External Oxygen saturation in Arterial blood by Pulse oximetry 2024-06-08 19:51:00 96 /min Shanta Floydo ld - External Systolic blood pressure 2024-03-06 15:41:00 132 mm[Hg] Shanta Seybo ld - External Diastolic blood pressure 2024-03-06 15:41:00 86 mm[Hg] Shanta Seybo ld - External Heart rate 2024-03-06 15:41:00 82 /min Anastaciose y Seybold - External Body temperature 2024-03-06 15:41:00 36.78 Natalee Shanta Seybold - External Respiratory rate 2024-03-06 15:41:00 20 /min Shanta Seybold - External Body height 2024-03-06 15:41:00 162.6 cm Ledy ey Seybold - External Body weight 2024-03-06 15:41:00 85.276 kg Ledy ey Seybold - External BMI 2024-03-06 15:41:00 32.27 kg/m2 Ledy ey Seybold - External Oxygen saturation in Arterial blood by Pulse oximetry 2024-03-06 15:41:00 98 /min Shanta Hinojosaybo ld - External Systolic blood pressure 2023-08-04 21:00:00 136 mm[Hg] Shanta Seybo ld - External Diastolic blood pressure 2023-08-04 21:00:00 70 mm[Hg] Shanta Seybo ld - External Heart rate 2023-08-04 21:00:00 78 /min Anastaciose y Seybold - External Body temperature 2023-08-04 21:00:00 36.67 Natalee Shanta Seybold - External Respiratory rate 2023-08-04 21:00:00 20 /min Shanta Seybold - External Body height 2023-08-04 21:00:00 162.6 cm Ledy ey Seybold - External Body weight 2023-08-04 21:00:00 83.008 kg Ledy ey Seybold - External BMI 2023-08-04 21:00:00 31.41 kg/m2 Ledy ey Seybold - External Oxygen saturation in Arterial blood by Pulse oximetry 2023-08-04 21:00:00 100 /min Shanta Hinojosaybo ld - External Systolic blood pressure 2023-01-26 00:21:38 138 mm[Hg] [facility] Diastolic blood pressure 2023-01-26 00:21:38 76 mm[Hg] [facility] Heart rate 2023-01-26 00:21:38 74 /min [facility] Respiratory rate 2023-01-26 00:21:38 18 /min [facility] Oxygen saturation in Arterial blood by Pulse oximetry 2023-01-26 00:21:38 100 /min [facility] Body temperature 2023-01-25 20:02:00 37.11 Natalee [facility] Body height 2023-01-25 20:02:00 162.6 cm [facility] Body weight 2023-01-25 20:02:00 81.647 kg [facility] BMI 2023-01-25 20:02:00 30.90 kg/m2 [facility] Systolic blood pressure 2020-11-13 14:42:00 156 mm[Hg] [facility] Diastolic blood pressure 2020-11-13 14:42:00 76 mm[Hg] [facility] Heart rate 2020-11-13 14:42:00 71 /min [facility] Body temperature 2020-11-13 14:42:00 37.11 Natalee [facility] Respiratory rate 2020-11-13 14:42:00 18 /min [facility] Body weight 2020-11-13 14:42:00 81.647 kg [facility] BMI 2020-11-13 14:42:00 30.90 kg/m2 [facility] Oxygen saturation in Arterial blood by Pulse oximetry 2020-11-13 14:42:00 100 /min [facility] Systolic blood pressure 2020-10-28 16:34:00 130 mm[Hg] [facility] Diastolic blood pressure 2020-10-28 16:34:00 79 mm[Hg] [facility] Heart rate 2020-10-28 16:34:00 70 /min [facility] Body temperature 2020-10-28 16:34:00 37 Natalee [facility] Respiratory rate 2020-10-28 16:34:00 16 /min [facility] Body height 2020-10-28 16:34:00 162.6 cm [facility] Body weight 2020-10-28 16:34:00 81.92 kg [facility] BMI 2020-10-28 16:34:00 31.00 kg/m2 [facility] Systolic blood pressure 2020-10-28 15:46:00 130 mm[Hg] [place] [facility] Diastolic blood pressure 2020-10-28 15:46:00 79 mm[Hg] [place] [facility] Heart rate 2020-10-28 15:46:00 78 /[facility] Body temperature 2020-10-28 15:46:00 37 Natalee [facility] Respiratory rate 2020-10-28 15:46:00 16 /min [facility] Body height 2020-10-28 15:46:00 162.6 cm [facility] Body weight 2020-10-28 15:46:00 81.818 kg [facility] BMI 2020-10-28 15:46:00 30.96 kg/m2 [facility] Procedures Procedure Date / Time Performed Performing Clinicia n Source PHOSPHORUS 2023-01-25 22:40:00 Angélica Herrera [facility] LIPASE 2023-01-25 22:40:00 Angélica Herrera [facility] MAGNESIUM 2023-01-25 22:40:00 Angélica Herrera [facility] TROPONIN I 2023-01-25 22:40:00 Angélica Herrera [facility] COMP. METABOLIC PANEL (68613) 2023-01-25 22:40:00 Angélica Herrera [facility] CBC WITH DIFF 2023-01-25 22:40:00 Angélica Herrera [facility] N-TERMINAL PRO-BNP 2023-01-25 22:40:00 Antwan Herrera [facility] ASSIGNMENT OF BENEFITS 2023-01-25 22:22:12 Docto r Unassigned, [place] [facility] CONSENT/REFUSAL FOR DIAGNOSIS AND TREATMENT 2023-01-25 19:56:56 Doctor Unassigned, [place] [facility] CONSENT/REFUSAL FOR DIAGNOSIS AND TREATMENT 2020-11-13 14:39:23 Doctor Unassigned, [place] [facility] CONSENT/REFUSAL FOR DIAGNOSIS AND TREATMENT 2020-10-28 14:52:33 Doctor Unassigned, [place] [facility] Encounters Start Date/Time End Date/Time Encounter Type Admission Type Attending [facility] Care Facility Care Department Encounter ID Source 2021-04-26 20:14:[address] [facility] [id number] [facility] 2024-08-17 10:30:00 2024-08-17 10:30:00 Outpatient JOSE RAMON BYRNE [id number] [facility] 2024-07-13 13:20:00 2024-07-13 13:20:00 Outpatient CAIO BERNARD [id number] [facility] 2024-07-06 09:00:00 2024-07-06 09:00:00 Outpatient URBAN GRANADOS [id number] [facility] 2024-06-13 00:00:00 2024-06-13 00:00:00 Outpatient URBAN GRANADOS [id number] [facility] 2024-06-11 00:00:00 2024-06-11 00:00:00 Outpatient KATIANA PIEDRA [id number] [facility] 2024-06-11 00:00:00 2024-06-11 00:00:00 Outpatient BERYL SHOOK [id number] [facility] 2024-06-08 14:45:00 2024-06-08 14:45:00 Outpatient LABJames PEREZ [id number] [facility] 2024-06-08 14:00:00 2024-06-08 14:00:00 Outpatient URBAN GRANADOS [id number] [facility] 2024-06-07 00:00:00 2024-06-07 00:00:00 Outpatient SHANTA PEREZ [id number] [facility] 2024-06-07 00:00:00 2024-06-07 00:00:00 [id number] [facility]:00:00 2024-06-07 00:00:00 Outpatient [facility]ANTA PERE[facility] [id number] [facility] 2024-06-05 00:00:00 2024-06-05 00:00:00 Outpatient KATIANA PIEDRA [facility] PEREZ [id number] [facility] 2024-05-30 14:30:00 2024-05-30 14:30:00 Outpatient JOSEEBROCK SHANTA PEREZ [id number] [facility] 2024-05-07 11:15:00 2024-05-07 11:15:00 Outpatient [facility]ANT[facility] PERE[facility] [id number] [facility] 2024-05-07 00:00:00 2024-05-07 00:00:00 Outpatient MD SHANTA SILVA [id number] [facility] 2024-05-03 00:00:00 2024-05-03 00:00:00 Outpatient SHANTA PEREZ [id number] [facility] 2024-05-02 00:00:00 2024-05-02 00:00:00 Outpatient KATIANA PIEDRA SHANTA PEREZ [id number] [facility] 2024-05-01 00:00:00 2024-05-01 00:00:00 Outpatient ANGIE PIEDRAQUINN PEREZ [id number] [facility] 2024-04-30 15:45:00 2024-04-30 15:45:00 Outpatient ALVAREZ MARIAM SHANTA PEREZ [id number] [facility] 2024-04-27 00:00:00 2024-04-27 00:00:00 Outpatient DOROTHEA KATIANAQUINN PEREZ [id number] [facility] 2024-04-05 09:00:00 2024-04-05 09:00:00 Outpatient KATIANA PIEDRA [id number] [facility] 2024-04-02 00:00:00 2024-04-02 00:00:00 Outpatient WHITNEY MASON [id number] [facility] 2024-03-24 00:00:00 2024-03-24 00:00:00 Outpatient ANGE DOUGHERTY [id number] [facility] 2024-03-08 12:45:00 2024-03-08 12:45:00 Outpatient LAB90 SHANTA SHANTA [id number] [facility] 2024-03-08 00:00:00 2024-03-08 00:00:00 Outpatient KATIANA PIEDRA SHANTA [id number] [facility] 2024-03-08 00:00:00 2024-03-08 00:00:00 Outpatient KATIANA PIEDRA SHANTA [id number] [facility] 2024-03-08 00:00:00 2024-03-08 00:00:00 Outpatient KATIANA PIEDRABRANDY PEREZ [id number] [facility] 2024-03-07 12:40:00 2024-03-07 12:40:00 Outpatient SHANTA SHANTA [id number] [facility] 2024-03-07 12:35:00 2024-03-07 12:35:00 Outpatient SHANTA PEREZ [id number] [facility] 2024-03-07 10:15:00 2024-03-07 10:15:00 Outpatient LABJames PEREZ [facility] [id number] [facility] 2024-03-06 11:00:00 2024-03-06 11:00:00 Outpatient KATIANA PIEDRABRANDY PEREZ [id number] [facility] 2024-03-05 14:30:00 2024-03-05 14:30:00 Outpatient WHITNEY MASON [id number] [facility] 2023-12-23 00:00:00 2023-12-23 00:00:00 Outpatient GISELA PETER [id number] [facility] 2023-12-22 00:00:00 2023-12-22 00:00:00 Outpatient [facility]ELA PETER [id number] [facility] 2023-12-19 00:00:00 2023-12-19 00:00:00 Outpatient BISI ALLEN [id number] [facility] 2023-12-13 09:00:00 2023-12-13 09:00:00 Outpatient BROOKE FRANKSEY [id number] [facility] 2023-12-06 15:30:00 2023-12-06 15:30:00 Outpatient GISELA PETER SHANTA SHANTA [id number] [facility] 2023-12-06 00:00:00 2023-12-06 00:00:00 Outpatient PREBERYL AMAYA SHANTA PEREZ [id number] [facility] 2023-12-05 11:25:00 2023-12-05 11:25:00 Outpatient LAB90 SHANTA PEREZ [id number] [facility] 2023-12-02 13:00:00 2023-12-02 13:00:00 Outpatient BROOKE FRANK SHANTA PEREZ [id number] [facility] 2023-12-02 00:00:00 2023-12-02 00:00:00 Outpatient BERYL SHOOK SHANTA PEREZ [id number] [facility] 2023-11-23 08:00:00 2023-11-23 08:00:00 Outpatient ROCKY PEARL SHANTA PEREZ [id number] [facility] 2023-11-23 00:00:00 2023-11-23 00:00:00 Outpatient SHANTA PEREZ [id number] [facility] 2023-11-23 00:00:00 2023-11-23 00:00:00 Outpatient BERYL SHOOK SHANTA PEREZ [id number] [facility] 2023-11-22 00:00:00 2023-11-22 00:00:00 Outpatient BERYL SHOOK SHANTA PEREZ [id number] [facility] 2023-10-06 10:00:00 2023-10-06 10:00:00 Outpatient FRANKBROOKE HOLLINS SHANTA PEREZ [id number] Shanta Seybold 2023-09-21 10:05:00 2023-09-21 10:05:00 Outpatient LAB90 SHANTA PEREZ [id number] Shanta Seybold 2023-09-21 08:30:00 2023-09-21 08:30:00 Outpatient KATIANA PIEDRA [id number] Shanta Seybold 2023-09-15 00:00:00 2023-09-15 00:00:00 Outpatient ANNAMARIE DOSS SHANTA PEREZ [id number] Shanta Monteiro 2023-08-29 09:30:00 2023-08-29 09:30:00 Outpatient KATIANA PIEDRA SHANTA PEREZ [id number] Shanta Monteiro 2023-08-22 00:00:00 2023-08-22 00:00:00 Outpatient BERYL SHOOK SHANTA PEREZ [id number] Shanta Hinojosadennys 2023-08-07 00:00:00 2023-08-07 00:00:00 Outpatient ANNAMARIE DOSS SHANTA PEREZ [id number] Shanta Monteiro 2023-08-04 16:00:00 2023-08-04 16:00:00 Outpatient DANIELA SHANTA PEREZ [id number] Shanta Monteiro 2023-08-04 15:30:00 2023-08-04 15:30:00 Outpatient ANNAMARIE DOSS SHANTA PEREZ [id number] [facility] 2023-02-08 16:15:00 2023-02-08 16:15:00 Outpatient ANNAMARIE DOSS SHANTA PEREZ [id number] [facility] 2023-02-08 15:30:00 2023-02-08 15:30:00 Outpatient ANNAMARIE DOSS SHANTA PEREZ [id number] Shanta Hinojosadennys 2023-01-26 14:36:17 2023-01-26 14:36:17 Outpatient [facility] [id number] Ant Dunn 2023-01-25 15:03:00 2023-01-25 19:34:00 Emergency X PAULJOCYANGÉLICA PEACE [facility] ERT [id number] [facility] 2023-01-25 15:03:00 2023-01-25 19:34:00 Emergency Matimisael Angélica Caraballo [facility] [id number] [facility] 2021-11-12 00:00:00 2021-11-12 00:00:00 Telephone Bree Auguste Sabrina [facility] [id number] [facility] 2020-11-21 00:00:00 2020-11-21 00:00:[address] [facility] [id number] [facility] 2020-11-21 00:00:00 2020-11-21 00:00:[address] [facility] [id number] [facility] 2020-11-13 09:46:00 2020-11-13 10:50:00 Emergency Chuckie Cobian [facility] [id number] [facility] 2020-10-28 12:45:00 2020-10-28 12:45:00 Outpatient R RUBY MEDINA [facility] [id number] [facility] 2020-10-28 11:25:16 2020-10-28 11:28:40 Office Visit Ruby Medina [facility] [id number] [facility] 2020-10-28 10:35:02 2020-10-28 11:28:21 Office Visit Ruby Medina [facility] [id number] [facility] 2020-10-28 10:30:00 2020-10-28 10:30:[address] [facility] [id number] [facility] 2020-10-28 00:00:00 2020-10-28 00:00:00 Orders Only Doctor Unassigned, [place] [facility] [id number] [facility] 2019-06-10 10:03:30 2019-06-10 11:58:00 Emergency X JOSE ALFREDO SU [facility] ERT [id number] [facility]
--- NOTE | 2024-06-28 12:48 | EDPHYS ---
Physician Documentation [facility] Name: Itzel Guy Age: 54 yrs Sex: Female : 1970 Arrival Date: 06/28/2024 Time: 12:22 Bed IW2 Private MD: ED Physician Dany Pacheco HPI: 06/28 12:49 This 54 yrs old Female presents to ER via Ambulatory with complaints of Foot ec2 pain. 12:49 Patient arrives today for evaluation of bilateral foot pain. No falls injuries or ec2 trauma. States that she has some pain and swelling with ambulatory on the right medial ankle without trauma. Has recently had negative x-rays bilaterally and was told that she had bunions.. Historical: - Allergies: 12:40 No Known Allergies; iw - PMHx: 12:40 degenerative bone disease; iw - Immunization history:: Adult Immunizations unknown. - Infectious Disease History:: Denies. - Social history:: Smoking status: Patient denies any tobacco usage or history of. ROS: 12:49 Constitutional: as per hpi ec2 Exam: 12:49 Constitutional: GEN: NAD Head: atraumatic Eyes: EOMI Ears: External ears are ec2 normal. CV: regular rate LUNGS: no respiratory distress ABD: non-distended SKIN: no evidence of rashes MSK: no evidence of trauma, bilateral lower extremities without evidence of trauma, good range of motion at the bilateral ankles as well as bilateral midfoot, no obvious deformities or crepitus appreciated, no significant swelling or ecchymosis noted. Vital Signs: 12:38 BP 136 / 95; Pulse 79; Resp 16; Temp 97.6; Pulse Ox 100% on R/A; Weight 81.65 kg; iw Height 5 ft. 4 in. ; Pain 0/10; 12:38 Body Mass Index 30.90 (81.65 kg, 162.56 cm) iw 12:38 Pain Scale: Adult iw MDM: 12:30 Medical Screening Exam initiated megan 12:49 Data reviewed:. Data reviewed: vital signs, nurses notes. ED course: Patient arrives ec2 today for bilateral feet pain. Examination is unrevealing. Suspect possible sprain related to use. Doubt fracture given lack of mechanism. Additionally doubt other processes such as infection given appearance. Return precautions given.. Administered Medications: No medications were administered Disposition Summary: 06/28/24 12:48 Discharge Ordered Notes: Location: Home ec2 Condition: Stable ec2 Diagnosis - Pain in foot and toes ec2 Followup: ec2 - With: Private Physician - When: - Reason: Re-evaluation by your physician Discharge Instructions: - Discharge Summary Sheet ec2 - Foot Care, Adult ec2 Forms: - Medication Reconciliation Form ec2 - Antibiotic Education ec2 - Prescription Opioid Use ec2 - Patient Portal Instructions ec2 - Leadership Thank You Letter ec2 Signatures: Patric Marie MD MD cha Williams, Irene, RN RN iw Dany Pacheco MD MD ec2 Corrections: (The following items were deleted from the chart) 12:41 12:40 PMHx: High Cholesterol; iw iw 12:41 12:40 PMHx: Hypertension; iw iw
--- NOTE | 2024-06-28 12:48 | ER ---
Nurse's Notes [facility] Name: Itezl Guy Age: 54 yrs Sex: Female : 1970 Arrival Date: 06/28/2024 Time: 12:22 Bed IW2 Private MD: Diagnosis: Pain in foot and toes Presentation: 06/28 12:38 Chief complaint: Patient states: has appt on 17, on my right foot it stays bruised on iw my ankle and I get sharp pain in the arch of my foot, and now my left foot 2nd and 3rd toe has a ball on it. Coronavirus screen: At this time, the client does not indicate any symptoms associated with coronavirus-19. Ebola Screen: No symptoms or risks identified at this time. Initial Sepsis Screen: Does the patient meet any 2 criteria? No. Patient's initial sepsis screen is negative. Does the patient have a suspected source of infection? No. Patient's initial sepsis screen is negative. Risk Assessment: Do you want to hurt yourself or someone else? Patient reports no desire to harm self or others. Onset of symptoms was April 2024. 12:38 Method Of Arrival: Ambulatory iw 12:38 Acuity: ALONSO 4 iw Historical: - Allergies: 12:40 No Known Allergies; iw - PMHx: 12:40 degenerative bone disease; iw - Immunization history:: Adult Immunizations unknown. - Infectious Disease History:: Denies. - Social history:: Smoking status: Patient denies any tobacco usage or history of. Screenin:40 [facility] ED Fall Risk Assessment (Adult) History of falling in the last 3 months, iw including since admission No falls in past 3 months (0 pts) Confusion or Disorientation No (0 pts) Intoxicated or Sedated No (0 pts) Impaired Gait No (0 pts) Mobility Assist Device Used No (0 pt) Altered Elimination No (0 pt) Score/Fall Risk Level 0 - 2 = Low Risk Oriented to surroundings. Abuse screen: Denies threats or abuse. Denies injuries from another. Nutritional screening: No deficits noted. Tuberculosis screening: No symptoms or risk factors identified. Assessment: 12:48 General: Appears in no apparent distress. Behavior is calm, cooperative. Pain: iw Complains of pain in right foot and left foot. Vital Signs: 12:38 BP 136 / 95; Pulse 79; Resp 16; Temp 97.6; Pulse Ox 100% on R/A; Weight 81.65 kg; iw Height 5 ft. 4 in. ; Pain 0/10; 12:38 Body Mass Index 30.90 (81.65 kg, 162.56 cm) iw 12:38 Pain Scale: Adult iw ED Course: 12:26 Patient arrived in ED. im 12:30 Patric Marie MD is Attending Physician. [facility] 12:30 Attending Physician role handed off by Patric Marie MD ec2 12:30 Dany Pacheco MD is Attending Physician. ec2 12:38 Arm band placed on. iw 12:40 Triage completed. iw 12:48 Idalia Rodriguez, RN is Primary Nurse. iw 12:48 Patient has correct armband on for positive identification. Provided Education on: . iw 12:51 No provider procedures requiring assistance completed. Patient did not have IV access iw during this emergency room visit. Administered Medications: No medications were administered Medication: 12:51 VIS not applicable for this client. iw Outcome: 12:48 Discharge ordered by . ec2 12:51 Discharged to home ambulatory, iw 12:51 Condition: good 12:51 Discharge instructions given to patient, Instructed on discharge instructions, follow up and referral plans. Demonstrated understanding of instructions, follow-up care, 12:52 Patient left the ED. iw Signatures: Patric Marie MD MD cha Williams, Irene, RN RN Demetrice Singh Dany Pacheco MD MD ec2 Corrections: (The following items were deleted from the chart) 12:40 12:38 BP 136 / 95; Pulse 79bpm; Resp 16bpm; Pulse Ox 100% RA; Temp 97.6F; iw iw 12:41 12:40 PMHx: High Cholesterol; iw iw 12:41 12:40 PMHx: Hypertension; iw iw
[2024-06-28 13:14] VITALS: BP 136/95; TEMP 97.6; O2SAT 100
== END 2024-06-28 12:52 | disposition home or self-care (01) ==
LOC: ER 12:22
DX: M79.672 Pain in left foot (principal); M79.671 Pain in right foot; M79.675 Pain in left toe(s); M79.674 Pain in right toe(s)
CPT/HCPCS: 99282